=== PATIENT | male | born 1955 | race Caucasian/White ===

== ENCOUNTER 2018-11-22 09:23 | Emergency (ER) | payer MEDICAID ==
[~2018-11-22] VITALS: Ht 177.8 cm; Wt 68.0 kg
--- OUTSIDE RECORDS SUMMARY | 2018-11-22 10:00 | XMS REPORT | Clinical Summary ---
Author Author [facility] Organization [facility] Address Unknown Phone Unavailable Care Team Providers Care Public Relations Representative Name Role Phone Irene Ley APRN Unavailable Source Comments Some departments are not documenting in the electronic medical record. If you do not see the information that you expected, contact Release of Information in the Health Information Management department at [phone] for further assistance in locating additional records.[facility] Allergies No Known Allergies Medications End Date Status Medication Sig Dispensed Refills Start Date Active HYDROcodone-acetaminophen Take 1 Tab by 0 (+) (LORTAB) 10-500 mg mouth every 6 tablet hours as needed. Active Problems Problem Noted Date Hepatitis C 05/25/2012 Tobacco abuse 05/25/2012 History of alcohol abuse 05/25/2012 History of substance abuse 05/25/2012 Hypertension 05/25/2012 Arthritis 05/25/2012 Depression 05/25/2012 Chronic back pain 05/25/2012 Family History Medical History Relation Name Comments Cancer Father throat Other Father ETOH abuse Other Mother from old age Relation Name Status Comments Father Mother Social History Date Tobacco Use Types Packs/Day Years Used Current Some Day Smoker Cigarettes 0.5 Alcohol Use Drinks/Week oz/Week Comments No H/o ETOH abuse for 30 years Quit 5 months ago. Sex Assigned at Date Recorded Not on file Industry Job Start Date Occupation Not on file Not on file Not on file Travel End Travel History Travel Start No recent travel history available. Last Filed Vital Signs Time Taken Vital Sign Reading 04/13/2012 10:18 AM CDT Blood Pressure 130/83 04/13/2012 10:18 AM CDT Pulse 70 04/13/2012 10:18 AM CDT Temperature 36.4 C (97.6 F) 04/13/2012 10:18 AM CDT Respiratory Rate 16 - Oxygen Saturation - - Inhaled Oxygen - Concentration 04/13/2012 10:18 AM CDT Weight 76.2 kg (168 lb) 04/13/2012 10:18 AM CDT Height 177.8 cm (5' 10") 04/13/2012 10:18 AM CDT Body Mass Index 24.11 Plan of Treatment Health Maintenance Due Date Last Done Comments HEPATITIS C SCREENING 1955 PHYSICAL (COMPREHENSIVE) 1962 EXAM HIV SCREENING 1970 DTAP/TDAP VACCINES (1 - 1973 Tdap) COLORECTAL CANCER 2005 SCREENING [employer]INGLES RECOMBINANT 2005 VACCINE (1 of 2) INFLUENZA VACCINE 03/22/2018 Results Not on filefrom Last 3 Months
--- OUTSIDE RECORDS SUMMARY | 2018-11-22 10:00 | XMS REPORT | Clinical Summary ---
Author Author [facility] Organization [facility] Address Unknown Phone Unavailable Care Team Providers Care Switch Crew Supervisor Name Role Phone PCP Unavailable Allergies Not on File Current Medications Not on file Active Problems Not on file Social History Tobacco Use Types Packs/Day Years Used Date Never Assessed Sex Assigned at Date Recorded Not on file Last Filed Vital Signs Not on file Plan of Treatment Not on file Results Not on filefrom Last 3 Months
--- OUTSIDE RECORDS SUMMARY | 2018-11-22 10:00 | XMS REPORT | Continuity of Care Document ---
Author Author [facility] Organization [facility] Address Unknown Phone Unavailable Allergies There is no data. Medications There is no data. Problems Date Dx Coded Attending Type Code Diagnosis Diagnosed By 08/10/2014 GENOVEVA MIRANDA MD (Federica) Ot V68.01 08/10/2014 GENOVEVA MIRANDA MD (FRANCESCO) Ot V82.89 Procedures There is no data. Results There is no data. Encounters ACCT No. Visit Date/Time Discharge Status Pt. Type Provider Facility Loc./Unit Complaint [id number] 08/07/2014 14:13:00 08/07/2014 23:59:59 CLS Outpatient GENOVEVA MIRANDA MD (DD[facility]) [facility] [place] [id number] 09/13/2018 08:40:00 09/13/2018 23:59:59 CLS Outpatient GERALDINE OSORIO [facility] [id number] 10/23/2018 09:40:00 10/23/2018 23:59:59 CLS Outpatient [facility]
[2018-11-22] MEDS ORDERED: ONDANSETRON 4 MG (ZOFRAN) ORAL DISSOLVE TAB PO STA (10:02)
--- NOTE | 2018-11-22 10:04 | ED General ---
General Chief Complaint: Substance Abuse Stated Complaint: VOMITING; DIARRHEA; INSOMNIA; NO APPETITE History of Present Illness Date Seen by Provider: Nov 22, 2018 Time Seen by Provider: 09:52 This is a 63-year-old man with a history of chronic pain related to various orthopedic procedures here with a chief complaint "I'm going through opioid withdrawal real bad". He ran out of his prescription of oxycodone at the end of last month so today is day 3 without this medication. He has had nausea, vomiting, diarrhea, he has had mood lability but denies SI or HI, denies hallucinations. He has not had alcohol for several years but he drank vodka over the last couple of days to try to help his symptoms of shakiness. Denies intoxication at this time. No chest pain, headache, shortness of breath, visual change or focal weakness, numbness, or tingling. Symptoms are constant, moderate in severity, some improvement with alcohol, generalized in location. Allergies and Home Medications Allergies Coded Allergies: No Known Drug Allergies (Unverified , 11/22/18) Home Medications Diazepam 5 Mg Tablet, 5 MG PO BID PRN for ANXIETY Prescribed by: DL LAMAS on 11/22/18 1023 Ondansetron 8 Mg Tab.rapdis, 8 MG PO TID PRN for NAUSEA/VOMITING Prescribed by: DL LAMAS on 11/22/18 1023 Patient Home Medication List Home Medication List Reviewed: Yes Review of Systems Review of Systems Constitutional: see HPI EENTM: no symptoms reported Respiratory: no symptoms reported Cardiovascular: no symptoms reported Gastrointestinal: see HPI Genitourinary: no symptoms reported Musculoskeletal: no symptoms reported Skin: no symptoms reported Psychiatric/Neurological: See HPI Hematologic/Lymphatic: No Symptoms Reported Immunological/Allergic: no symptoms reported Past Dunzxhs-Ohajdb-Hvzbjg Hx Past Med/Social Hx: Reviewed Nursing Past Med/Soc Hx Patient Social History Alcohol Use: Past History Number of Drinks Today: 1 Alcohol Beverage of Choice: Vodka Recreational Drug Use: Yes Drug of Choice: prescription drug usage over yrs Smoking Status: Former Smoker Former Smoker, Quit: Aug 22, 2015 Recent Hopitalizations: No Physical Abuse: No Sexual Abuse: No Mistreated: No Fear: No Immunizations Up To Date Date of Influenza Vaccine: May 22, 2018 Seasonal Allergies Seasonal Allergies: No Past Medical History Surgeries: Yes (L leg fx-ORIF, R rotator cuff) Orthopedic Respiratory: No Cardiac: Yes (not on med but elevated after alcoholism) Hypertension Genitourinary: No Gastrointestinal: No Musculoskeletal: Yes (chronic neck pain, back pain, and left leg pain) Arthritis, Chronic Back Pain Endocrine: Yes Hypothyroidsim HEENT: No Cancer: No Psychosocial: No Integumentary: No Blood Disorders: No Physical Exam Vital Signs Vital Signs - First Documented 11/22/18 09:32 Temp 98.4 Pulse 93 Resp 20 B/P (MAP) 159/109 (126) Pulse Ox 98 O2 Delivery Room Air Capillary Refill : Height, Weight, BMI Height: '" Weight: lbs. oz. kg; BMI Method: General Appearance: No Apparent Distress HEENT: PERRL/EOMI (pupils are approximately 4 mm bilaterally) Neck: Supple Respiratory: Lungs Clear Cardiovascular: Regular Rate, Rhythm, Normal Peripheral Pulses Gastrointestinal: Non Tender, Soft Extremity: Other (no edema) Neurologic/Psychiatric: Alert, Oriented x3, No Motor/Sensory Deficits, Normal Mood/Affect, ware finisher II-XII Norm as Tested; No Abnormal Gait; Other (no tremor noted ) Skin: Warm/Dry Progress/Results/Core Measures Suspected Sepsis SIRS Temperature: Pulse: Respiratory Rate: Blood Pressure / Mean: Results/Orders My Orders Orders - DL LAMAS DO Ondansetron Oral Dissolve Tab (Zofran (11/22/18 10:02) Vital Signs/I&O 11/22/18 09:32 Temp 98.4 Pulse 93 Resp 20 B/P (MAP) 159/109 (126) Pulse Ox 98 O2 Delivery Room Air Capillary Refill : Progress Note : Progress Note This is a 63-year-old man complaining of nausea, vomiting, diarrhea, tremor in the setting of recent abrupt discontinuation of opioids. He denies any benzodiazepine (anxiety medication) use. He has been drinking some alcohol for the last couple of days but is unlikely at risk for acute alcohol withdrawal. We did speak about opioid withdrawal versus benzodiazepine and alcohol withdrawal. Checked the [employer] website and it appears patient has been feeling his opioid prescription at the start of every month consistent with his stated history, and there is no perception filled this month. He did drive himself here today, I will give a dose of Zofran, I will write a prescription for Zofran and I will write a prescription for 6 tablets of diazepam 5mg to help with his symptoms over the next 2 days, directed to take TID for one day, BID for one day, then once. He is reminded he must follow-up with his doctor for further care. He was that he may return to the emergency department at any time for any reason. Note made of hypertension upon arrival, he denies any symptoms of hypertensive emergency, he will follow-up with his doctor for repeat measurement. Departure Impression Primary Impression: Opioid withdrawal Additional Impression: Hypertension Disposition: HOME, SELF-CARE Condition: Stable Departure-Patient Inst. Referrals: JAVIER JEROME MD (PCP/Family) Primary Care Physician Patient Instructions: Drug Withdrawal (DC) Scripts Ondansetron (Ondansetron Odt) 8 Mg Tab.rapdis 8 MG PO TID PRN for NAUSEA/VOMITING for 28 Days, #30 TAB Prov: DL LAMAS DO 11/22/18 Diazepam (Diazepam) 5 Mg Tablet 5 MG PO BID PRN for ANXIETY for 3 Days, #6 TAB Prov: DL LAMAS DO 11/22/18 DL LAMAS DO Nov 22, 2018 10:04
[2018-11-22] MEDS ORDERED: LEVO100T7 (10:07)
[2018-11-22] MEDS ORDERED: DIAZ5TAB3 PO (10:23)
[2018-11-22] MEDS ORDERED: ONDA8TAB13 PO (10:23)
[2018-11-22 10:27] VITALS: BP 159/109
== END 2018-11-22 10:27 | disposition home or self-care (01) ==
LOC: EDUNIT# 09:23 → ER FS 09:28
DX: F11.23 Opioid dependence with withdrawal (principal); I10 Essential (primary) hypertension; F10.20 Alcohol dependence, uncomplicated; E03.9 Hypothyroidism, unspecified; Z87.891 Personal history of nicotine dependence
CPT/HCPCS: 99283

== ENCOUNTER → 2020-09-16 | Outpatient (CLI) | payer MEDICAID ==
[~2020-09-16] MED LIST: DIAZ5TAB49 PO; LEVO100T7; ONDA8TAB13 PO
== END ==
LOC: LAB FS 09:45
DX: Z01.812 Encounter for preprocedural laboratory examination (principal); K40.90 Unilateral inguinal hernia, without obstruction or gangrene, not specified as recurrent; Z20.822 Contact with and (suspected) exposure to COVID-19
CPT/HCPCS: 87635

== ENCOUNTER → 2021-11-10 | Outpatient (CLI) | payer OTHER, MEDICAID ==
--- NOTE | 2021-11-10 10:20 | Diagnostic Imaging Report ---
INDICATION: Left knee pain. COMPARISON: None. FINDINGS: Multiple radiographic views of the left knee were obtained. Post surgical changes of previous ORIF are noted. An orthopedic sideplate and screws are identified traversing the lateral margins of the proximal tibia. Hardware appears well seated and is intact. No unexpected radiopaque foreign bodies are seen. No acute fracture or dislocation in the left knee is seen. Joint spaces are maintained although mild osteoarthritic changes are noted. IMPRESSION: 1. Post surgical changes of previous proximal left tibial ORIF. No evidence of hardware fracture or failure. 2. No acute fracture or dislocation of the left knee. 3. Mild osteoarthritic changes. Dictated by: Dictated on workstation # [id number]
== END ==
LOC: RAD FS 09:56
PROVIDERS: ATTEND Nurse Practitioner
DX: M17.12 Unilateral primary osteoarthritis, left knee (principal); Z98.890 Other specified postprocedural states
CPT/HCPCS: 73562

== ENCOUNTER 2022-01-23 09:56 | Emergency (ER) | payer OTHER, MEDICAID ==
[~2022-01-23] VITALS: Ht 177.8 cm; Wt 79.3 kg
[2022-01-23] MEDS ORDERED: KETOROLAC 60 MG/2 ML VIAL IM STA (10:08)
[2022-01-23] MEDS ORDERED: fentaNYL INJ 100 MCG/2 ML AMP IM STA (10:08)
--- NOTE | 2022-01-23 10:21 | ED Fall/Injury ---
General Chief Complaint: Trauma-Non Activation Stated Complaint: FALL; LT RIB INJ Nursing Triage Note: Left rib pain Source: patient, spouse History of Present Illness Date Seen by Provider: Jan 23, 2022 Time Seen by Provider: 09:58 Initial Comments 66-year-old male presenting with complaints of left-sided rib pain. He states that he had taken his most relaxer last night and when he got up he got lightheaded and fell down. He hit his left chest wall against a table and has had severe pain to his left chest since 9:00 last night when he fell. He has not taken anything for the pain other than his Tizanidine he takes routinely. He thinks the Tizanidine made him dizzy and fall. He also had a couple of scredriver alcohol drinks yesterday as well. He denies hitting his head or losing consciousness. Location Injury Occurred: Home Occurred: yesterday Severity: severe Injuries/Pain Location: chest (Left chest wall) Context: lightheaded Loss of Consciousness: no loss of consciousness Modifying Factors: Improves With Cold Therapy; Worse With Movement (And deep breaths) Associated Symptoms (Fall): No Abdominal Pain; Chest Pain (Left-sided chest wall and rib pain.); No Confusion, No Dizziness, No Headache, No Lightheadedness; Muscle Spasms (Left chest); No Nausea/Vomiting, No Neck Pain, No Ringing in Ears, No Seizures, No Shortness of Air, No Slurred Speech; Trouble Walking (Chronic and uses a cane); No Vision Changes Allergies and Home Medications Allergies Coded Allergies: No Known Drug Allergies (Unverified , 11/22/18) Patient Home Medication List Home Medication List Reviewed: Yes Diazepam (Diazepam) 5 Mg Tablet, 5 MG PO BID PRN for ANXIETY Prescribed by: DL LAMAS on 11/22/18 1023 Ibuprofen (Ibuprofen) 800 Mg Tablet, 800 MG PO Q8H PRN for PAIN Prescribed by: WILLI GOMES on 01/23/22 1053 Levothyroxine Sodium (Levothyroxine Sodium) 100 Mcg Tablet, (Reported) Entered as Reported by: MARIANNE QUINTANA on 11/22/18 1007 Lidocaine (Lidocaine 5% Patch) 5 % Adh..patch, 1 EACH TP Q12H PRN for rib pain Prescribed by: WILLI GOMES on 01/23/22 1053 Ondansetron (Ondansetron Odt) 8 Mg Tab.rapdis, 8 MG PO TID PRN for NAUSEA/VOMITING Prescribed by: DL LAMAS on 11/22/18 1023 Oxycodone HCl/Acetaminophen (Oxycodone-Acetaminophen 5-325) 5 Mg-325 Mg Tablet, 1 EACH PO Q4H PRN for PAIN-SEVERE (8-10) Prescribed by: WILLI GOMES on 01/23/22 1054 Review of Systems Review of Systems Constitutional: No chills, No fever Eyes: No Symptoms Reported Ears, Nose, Mouth, Throat: no symptoms reported Respiratory: see HPI Cardiovascular: see HPI Gastrointestinal: no symptoms reported Genitourinary: no symptoms reported Musculoskeletal: see HPI Skin: No change in color (No bruising or abrasions noted), No rash Psychiatric/Neurological: Anxiety Past Eddqphm-Rimflk-Gjcijb Hx Patient Social History Tobacco Use?: No Smoking Status: Former Smoker Substance use?: No Alcohol Use?: Yes Alcohol Frequency: Once in a while Pt feels they are or have been: No Immunizations Up To Date First/Initial COVID19 Vaccinat: Yes Second COVID19 Vaccination Campbell: Yes Seasonal Allergies Seasonal Allergies: No Past Medical History Surgery/Hospitalization HX: HTN; Hypothyroidism; Restless leg syndrome Surgeries: Yes (L leg fx-ORIF, R rotator cuff) Orthopedic Respiratory: No Cardiac: Yes (not on med but elevated after alcoholism) Hypertension Genitourinary: No Gastrointestinal: No Musculoskeletal: Yes (chronic neck pain, back pain, and left leg pain) Arthritis, Chronic Back Pain Endocrine: Yes Hypothyroidsim HEENT: No Cancer: No Psychosocial: No Integumentary: No Blood Disorders: No Physical Exam Vital Signs Vital Signs - First Documented 01/23/22 10:00 Temp 35.8 Pulse 71 Resp 18 B/P (MAP) 135/74 (94) Pulse Ox 99 O2 Delivery Room Air Capillary Refill : Height, Weight, BMI Height: 5'10.00" Weight: 150lbs. oz. 68.182214nh; BMI Method:Stated General Appearance: mild distress HEENT: PERRL/EOMI, pharynx normal Neck: non-tender, full range of motion, supple, normal inspection Cardiovascular: normal peripheral pulses, regular rate, rhythm Respiratory: No chest non-tender (Pain to palpation along the left chest wall without crepitus or step-off.); lungs clear, normal breath sounds, no respiratory distress, no accessory muscle use Neurologic/Psychiatric: alert, oriented x 3 Skin: normal color, warm/dry; No ecchymosis Progress/Results/Core Measures Results/Orders My Orders Orders - WILLI GOMES MD Ketorolac Injection (Toradol Injection) (01/23/22 10:08) Fentanyl Inj (Sublimaze Injection) (01/23/22 10:08) Ribs/Unilateral With Chest (01/23/22 10:09) Vital Signs/I&O 01/23/22 01/23/22 10:00 10:59 Temp 35.8 35.8 Pulse 71 71 Resp 18 18 B/P (MAP) 135/74 (94) 118/65 Pulse Ox 99 99 O2 Delivery Room Air Room Air Progress Progress Note #1: Progress Note Try Toradol and fentanyl for pain since he already took tizanidine will defer any muscle relaxers. Obtain x-rays of the chest and left ribs Progress Note #2: Progress Note X-rays demonstrated fracture of ribs 7 8 and 9. He has no pneumothorax or pneumonia. Treat with lidocaine numbing patches, ibuprofen, Percocet. Counseled on follow-up and return precautions. Stressed importance of taking deep breaths to help prevent pneumonia. Splint side to help with pain. Sent with incentive spirometer. Diagnostic Imaging Diagonstic Imaging: Xray Plain Films/CT/US/NM/MRI: chest (And ribs) Comments [facility] [place], [place] NAME: MARI GILLESPIE [facility] REC#: [id number] PT STATUS: REG ER : 1955 PHYSICIAN: WILLI GOMES MD ADMIT DATE: 01/23/22/ER FS Draft Date of Exam:01/23/22 RIBS/UNILATERAL WITH CHEST EXAMINATION: Left ribs unilateral 2 view HISTORY: Rib pain, fall COMPARISON: None available. FINDINGS: There are left 7th, 8th and 9th rib fractures. No pleural effusion or pneumothorax. No edema or pneumonia. Heart size is normal. IMPRESSION: 1. Left 7th, 8th and 9th rib fractures. Dictated on workstation # [id number] Dict: 01/23/22 1021 Trans: 01/23/22 1030 [facility] [id number] Interpreted by: MILLER PATEL MD Electronically signed by: Reviewed: Reviewed by Me Departure Impression Primary Impression: Multiple fractures of ribs, left side, initial encounter for closed fracture Additional Impressions: Left-sided chest wall pain Contusion of left chest wall Qualified Codes: S20.212A - Contusion of left front wall of thorax, initial encounter Rib pain on left side Disposition: HOME, SELF-CARE Condition: Stable Departure-Patient Inst. Decision time for Depature: 10:48 Referrals: JAVIER JEROME MD (PCP) Primary Care Physician Patient Instructions: Blunt Chest Trauma ED, How to Use an Incentive Spirometer, Opioids for Short-Term Treatment of Pain ED, Rib Fracture or Bruised Rib ED Add. Discharge Instructions: Take the narcotic pain medicine to help with the severe pain. Consider starting a laxative such as Miralax to help prevent constipation from the narcotic. Continue alternating ice and heat to chest wall to help with pain. Using a pillow or something soft to splint your side when you have to cough. Make sure you continue to take deep breaths to help expand your lungs. Use the Incentive Spirometer to help take deep breaths. Use it 10 times in an hour at least 4 times a day to help prevent pneumonia. Try Lidocaine or numbing patch to chest wall to help with pain. Over the counter a brand name of one of these is Salon Pas. All discharge instructions reviewed with patient and/or family. Voiced understanding. Scripts Ibuprofen (Ibuprofen) 800 Mg Tablet 800 MG PO Q8H PRN for PAIN for 10 Days, #30 TAB 0 Refills Prov: WILLI GOMES MD 01/23/22 Oxycodone HCl/Acetaminophen (Oxycodone-Acetaminophen 5-325) 5 Mg-325 Mg Tablet 1 EACH PO Q4H PRN for PAIN-SEVERE (8-10) MDD 6 for 5 Days, #30 TAB 0 Refills Prov: WILLI GOMES MD 01/23/22 Lidocaine (Lidocaine 5% Patch) 5 % Adh..patch 1 EACH TP Q12H PRN for rib pain MDD 2 for 28 Days, #28 PATCH 1 Refill 2 patches max for 12 hours, then 12 hours patch-free period. Prov: WILLI GOMES MD 01/23/22 WILLI GOMES MD Jan 23, 2022 10:21
--- NOTE | 2022-01-23 10:32 | Diagnostic Imaging Report ---
EXAMINATION: Left ribs unilateral 2 view HISTORY: Rib pain, fall COMPARISON: None available. FINDINGS: There are left 7th, 8th and 9th rib fractures. No pleural effusion or pneumothorax. No edema or pneumonia. Heart size is normal. IMPRESSION: 1. Left 7th, 8th and 9th rib fractures. Dictated by: Dictated on workstation # [id number]
[2022-01-23] MEDS ORDERED: IBUP-1780 PO (10:53)
[2022-01-23] MEDS ORDERED: LIDO700A45 TP (10:53)
[2022-01-23] MEDS ORDERED: OXYC1TAB11 PO (10:53)
[2022-01-23 10:59] VITALS: BP 118/65
== END 2022-01-23 10:59 | disposition home or self-care (01) ==
LOC: EDUNIT# 09:56 → ER FS 09:57
DX: S22.42XA Multiple fractures of ribs, left side, initial encounter for closed fracture (principal); Z87.891 Personal history of nicotine dependence; Z79.899 Other long term (current) drug therapy; W19.XXXA Unspecified fall, initial encounter; Y92.009 Unspecified place in unspecified non-institutional (private) residence as the place of occurrence of the external cause
CPT/HCPCS: 71101

== ENCOUNTER → 2022-09-14 | Outpatient (CLI) | payer MEDICARE, MEDICAID ==
[~2022-09-14] MED LIST changes: +IBUP-1780 PO; +LIDO700A45 TP; +OXYC1TAB11 PO
--- NOTE | 2022-09-14 12:05 | Diagnostic Imaging Report ---
INDICATION: Rotator cuff tear, pain COMPARISON: None available. TECHNIQUE: 4 radiographs the right shoulder dated 09/14/2022. FINDINGS: Moderate degenerative changes of the acromial clavicular joint. No acute fracture or dislocation. No destructive osseous process. Narrowing of the subacromial space. Mild degenerative changes the glenohumeral joint. No suspicious radiopaque foreign body. IMPRESSION: No acute osseous abnormality with mild/moderate degenerative changes present. Narrowing of the subacromial space, which likely relates to an underlying chronic rotator cuff tear. This can be further evaluated with MRI of the right shoulder if clinically indicated. Dictated by: Dictated on workstation # [id number]
== END ==
LOC: RAD FS 10:50
PROVIDERS: ATTEND Nurse Practitioner
DX: M75.121 Complete rotator cuff tear or rupture of right shoulder, not specified as traumatic (principal); M19.011 Primary osteoarthritis, right shoulder
CPT/HCPCS: 73030